=== PATIENT | male | born 1940 | race Caucasian/White ===

== ENCOUNTER → 2016-11-22 | Outpatient (CLI) | payer OTHER, MEDICARE | LOC: BMCIMAGING 14:13 | PROVIDERS: ATTEND Internal Medicine | DX: R06.02 Shortness of breath (principal); R06.2 Wheezing; E78.5 Hyperlipidemia, unspecified; I10 Essential (primary) hypertension; I25.10 Atherosclerotic heart disease of native coronary artery without angina pectoris; I48.91 Unspecified atrial fibrillation; J45.909 Unspecified asthma, uncomplicated ==

== ENCOUNTER 2016-12-05 08:53 | Emergency (ER) | payer OTHER, MEDICARE ==
[2016-12-05 09:01] VITALS: TEMP 97.5
--- NOTE | 2016-12-05 09:15 | CPEKG ---
Heart Rate: 75 RR Interval: 800 P-R Interval: 168 QRSD Interval: 142 QT Interval: 424 QTC Interval: 474 P [place]: 21 QRS [place]: -78 T Wave [place]: 8 EKG Severity - ABNORMAL ECG - EKG Impression: SINUS RHYTHM EKG Impression: ATRIAL PREMATURE COMPLEX EKG Impression: RBBB AND LAFB Electronically Signed By: Kiana Amezcua 05-Dec-2016 15:22:39
[2016-12-05] MEDS ORDERED: IPRATROPIUM/ALBUTEROL 3 ML DEYVIAL ONE (09:18)
[2016-12-05] MEDS ORDERED: methylPREDNISolone SOD SUCC 125 MG/2 ML VIAL ONE (09:18)
[2016-12-05] MEDS ORDERED: ASPIRIN 81 MG CHEWABLE TAB ONE (09:18)
[2016-12-05] MEDS ORDERED: methylPREDNISolone SOD SUCC 125 MG/2 ML VIAL IVP ONE (09:22)
[2016-12-05] MEDS ORDERED: IPRATROPIUM/ALBUTEROL 3 ML DEYVIAL IH ONE (09:22)
[2016-12-05] MEDS ORDERED: ASPIRIN 81 MG CHEWABLE TAB PO ONE (09:22)
--- NOTE | 2016-12-05 09:26 | EDPHY ---
H & P Time Seen by Provider: 12/05/16 09:03 HPI/ROS: CHIEF COMPLAINT: Shortness of breath HISTORY OF PRESENT ILLNESS: The patient is a 76-year-old male who presents to the emergency department with ongoing shortness of breath. The patient states he had asthma as a child but he grew out of it. His symptoms feel like he is having an asthma exacerbation. Patient states his symptoms started in July. He was diagnosed with bronchitis. He was treated with antibiotics and his symptoms improved. He again developed bronchitis 2 weeks ago. He was treated with antibiotics and he felt his symptoms were improving. His cough had decreased. However, he has remained short of breath. He feels as though his chest is tight. He denies fevers or chills. He has had no leg pain or swelling. No recent travel. No chest pain. He has no orthopnea or PND. He does state that he has more dyspnea on exertion. REVIEW OF SYSTEMS: My complete review of systems is negative except as mentioned in the HPI. Past Medical/Surgical History: Includes asthma, subarachnoid hemorrhage, hypertension, high cholesterol Past surgical history: Includes shunt placement, shoulder surgery x2, knee surgery, appendectomy Social history: The patient has a remote history of smoking. He is . Smoking Status: Former smoker Physical Exam: 36.4, 161/88, 81, 20, 91% on room air GENERAL: Well-appearing, in no acute distress, alert. HEENT: Eyes normal to inspection, normal pharynx, no signs of dehydration. NECK: No thyromegaly, no lymphadenopathy, supple. RESPIRATORY: Coarse breath sounds with scattered wheezing. No rales or rhonchi. No accessary muscle use. CVS: Regular rate and rhythm, no rubs, murmurs, or gallops. ABDOMEN: Soft, nontender, nondistended, no organomegaly. BACK: Normal to inspection, no CVA tenderness. SKIN: Normal color, no rash, warm, dry. No pallor. EXTREMITIES: No pedal edema, no calf tenderness, no Homans sign or cords, no joint swelling. NEURO/PSYCH: Alert and oriented x3, normal mood and affect, normal motor sensory exam. Constitutional: Initial Vital Signs Temperature (C) 36.4 C 12/05/16 08:58 Heart Rate 81 12/05/16 08:58 Respiratory Rate 20 12/05/16 08:58 Blood Pressure 161/88 H 05/14/17 08:58 O2 Sat (%) 91 L 12/05/16 08:58 O2 Delivery Mode Room Air Allergies/Adverse Reactions: HAYFEVER Allergy (Mild, Uncoded 12/05/16 08:56) NASAL CONGESTION Home Medications: Medication Instructions Recorded Cholecalciferol Vit D3 [Vitamin D3 1,000 units PO DAILY 10/26/12 1000 units (OTC)] Diltiazem HCl [Diltiazem 24Hr Cd] 240 mg PO DAILY 10/26/12 Docosahexanoic Acid/Vit C/Lut [Eye 1 each PO DAILY 10/26/12 Health Formula Softgel] Hydrochlorothiazide 25 mg PO DAILY 10/26/12 [Hydrochlorothiazide 25 MG (RX)] Irbesartan [Avapro 300 mg] 300 mg PO DAILY 10/26/12 Multivit with Calcium,Iron,Min 1 each PO DAILY 10/26/12 [Tab A Alban] [place]-3 Fatty Acids [Fish Oil 1000 2,000 mg PO DAILY 10/26/12 mg (OTC)] Simvastatin [Zocor 40 mg (RX)] 40 mg PO DAILY18 10/26/12 Ubidecarenone [Co Q-10 200 mg] 200 mg PO DAILY 10/26/12 Albuterol [Proventil Inhaler HFA 1 - 2 puffs IH Q4H #1 mdi 12/05/16 (*)] Aspirin 81mg (*) 12/05/16 predniSONE 20 mg PO DAILY 4 Days 12/05/16 Medical Decision Making - Diagnostics EKG Interpretation: Sinus rhythm at 75. Right bundle-branch block, left anterior fascicular block. No ST changes. Imaging Results: Imaging Impressions Chest X-Ray 12/05/16 09:23 Impression: Mild perihilar bronchitis, without a focal infiltrate. Findings were discussed with SULMA STORY MD at 10:13 am, on 12/05/2016. ED Course/Re-evaluation: In the emergency department I discussed possible etiologies with the patient. I answered all his questions. He consented to the plan. He will have laboratory studies, chest x-ray, EKG ordered. He was given aspirin 324 mg orally, DuoNeb, and Solu-Medrol 125 IV. After receiving the inhaler the patient states I feel much better. He has no difficulty breathing. He feels as though his asthma type symptoms have resolved. Patient's laboratory studies were unremarkable. His CBC, chemistry were normal. D-dimer, BNP and troponin were negative. Chest x-ray: Please refer the dictated report by Dr. Etienne Barillas. I personally reviewed the images with Dr. Barillas in person. He does not feel there is a focal infiltrate. 1010: I rechecked the patient. He was doing well. Patient's wheezing had improved. He has no rales or rhonchi. He does have continued coarse breath sounds.. No signs of accessary muscle use or respiratory distress. I discussed all results and answered the patient's questions. Patient will be given a course of steroid. He will also be discharged with inhaler. He will follow up with Dr. Weaver this week. Patient felt comfortable with this plan. He will return with worsening symptoms. Differential Diagnosis: My differential includes but is not limited to reactive airway disease, bronchitis, pneumonia, pulmonary embolus, CHF, ACS, acute MN - Data Points Laboratory Results: Laboratory Results 12/05/16 09:19 12/05/16 09:19 12/05/16 12/05/16 12/05/16 09:19 09:19 09:19 WBC 9.26 10^3/uL 10^3/uL (3.80-9.50) RBC 4.69 10^6/uL 10^6/uL (4.40-6.38) Hgb 15.9 g/dL g/dL (13.7-17.5) Hct 44.0 % % (40.0-51.0) MCV 93.8 fL fL (81.5-99.8) MCH 33.9 pg pg (27.9-34.1) MCHC 36.1 g/dL g/dL (32.4-36.7) RDW 12.6 % % (11.5-15.2) Plt Count 214 10^3/uL 10^3/uL (150-400) MPV 9.8 fL fL (8.7-11.7) Neut % (Auto) 45.7 % % (39.3-74.2) Lymph % (Auto) 30.9 % % (15.0-45.0) Edgar % (Auto) 7.6 % % (4.5-13.0) Eos % (Auto) 14.3 % H % (0.6-7.6) Baso % (Auto) 1.3 % % (0.3-1.7) Nucleat RBC Rel Count 0.0 % % (0.0-0.2) Absolute Neuts (auto) 4.24 10^3/uL 10^3/uL (1.70-6.50) Absolute Lymphs (auto) 2.86 10^3/uL 10^3/uL (1.00-3.00) Absolute Monos (auto) 0.70 10^3/uL 10^3/uL (0.30-0.80) Absolute Eos (auto) 1.32 10^3/uL H 10^3/uL (0.03-0.40) Absolute Basos (auto) 0.12 10^3/uL H 10^3/uL (0.02-0.10) Absolute Nucleated RBC 0.00 10^3/uL 10^3/uL (0-0.01) Immature Gran % 0.2 % % (0.0-1.1) Immature Gran # 0.02 10^3/uL 10^3/uL (0.00-0.10) D-Dimer < 0.27 ug/mLFEU ug/mLFEU (0.00-0.50) Sodium 141 mEq/L mEq/L (134-144) Potassium 4.0 mEq/L mEq/L (3.5-5.2) Chloride 102 mEq/L mEq/L (97-110) Carbon Dioxide 26 mEq/l mEq/l (22-31) Anion Gap 13 mEq/L mEq/L (8-16) BUN 23 mg/dL mg/dL (7-23) Creatinine 1.2 mg/dL mg/dL (0.7-1.3) Estimated GFR 59 Glucose 134 mg/dL H mg/dL (70-100) Calcium 9.7 mg/dL mg/dL (8.5-10.4) Troponin I < 0.012 ng/mL ng/mL (0-0.034) NT-Pro-B Natriuret Pep 50 pg/mL pg/mL (0-450) Medications Given: Discontinued Medications Albuterol/Ipratropium (Duoneb) 3 ml IH EDNOW ONE Stop: 12/05/16 09:23 Last Admin: 12/05/16 09:25 Dose: 3 ml Aspirin (Aspirin) 324 mg PO EDNOW ONE Stop: 12/05/16 09:23 Last Admin: 12/05/16 09:25 Dose: 324 mg Methylprednisolone Sodium Succinate (Solu-Medrol) 125 mg IVP EDNOW ONE Stop: 12/05/16 09:23 Last Admin: 12/05/16 09:26 Dose: 125 mg Departure - Departure Disposition: Home, Routine, Self-Care Clinical Impression: Shortness of breath Reactive airway disease Qualifiers: Asthma severity: unspecified severity Asthma complication type: with acute exacerbation Qualified Code(s): J45.901 - Unspecified asthma with (acute) exacerbation Condition: Good Instructions: Reactive Airways Disease (ED), Dyspnea (ED) Additional Instructions: Return with increasing shortness of breath, chest pain or any other concerns. Referrals: Rafael Weaver MD [Primary Care Provider] - 2-3 days, if not improved Prescriptions: Albuterol [Proventil Inhaler HFA (*)] 1 - 2 puffs IH Q4H #1 mdi predniSONE 20 mg PO DAILY 4 Days
[2016-12-05 09:32] LABS: % IMMATURE GRANULYOCYTES 0.2 % (0.0-1.1); ABSOLUTE IMMATURE GRANULOCYTES 0.02 10^3/uL (0.00-0.10); ADD DIFF? NO; ADD MORPH? NO; ADD SCAN? NO; ATYPICAL LYMPHOCYTE FLAG 0 (0-99); FRAGMENT RBC FLAG 0 (0-99); HEMOGLOBIN 15.9 g/dL (13.7-17.5); LEFT SHIFT FLG 0 (0-99); LIPEMIA HEMOLYSIS FLAG 90 (0-99); MEAN CELL HEMOGLOBIN 33.9 pg (27.9-34.1); MEAN CELL HEMOGLOBIN CONCENTR. 36.1 g/dL (32.4-36.7); MEAN CELL VOLUME 93.8 fL (81.5-99.8); MEAN PLATELET VOLUME 9.8 fL (8.7-11.7); PLATELET CLUMPS FLAG 10 (0-99); PLATELET COUNT 214 10^3/uL (150-400); RED BLOOD CELL COUNT 4.69 10^6/uL (4.40-6.38); RED CELL DISTRIBUTION WIDTH 12.6 % (11.5-15.2)
[2016-12-05 09:52] LABS: ANION GAP 13 mEq/L (8-16); CALCIUM 9.7 mg/dL (8.5-10.4); CARBON DIOXIDE 26 mEq/l (22-31); CHLORIDE 102 mEq/L (97-110); CREATININE 1.2 mg/dL (0.7-1.3); GLOMERULAR FILTRATION RATE 59; GLUCOSE 134 mg/dL (70-100); SODIUM 141 mEq/L (134-144)
[2016-12-05 10:04] LABS: TROPONIN I < 0.012 ng/mL (0-0.034)
[2016-12-05 10:15] VITALS: BP 142/89; PULSE 72; RESP 16; O2SAT 92
== END 2016-12-05 10:27 | disposition home or self-care (01) ==
DX: J45.901 Unspecified asthma with (acute) exacerbation (principal); I10 Essential (primary) hypertension; Z79.82 Long term (current) use of aspirin; Z87.891 Personal history of nicotine dependence
CPT/HCPCS: 96374

== ENCOUNTER 2017-08-28 07:53 | Emergency (ER) | payer OTHER, MEDICARE ==
--- NOTE | 2017-08-28 08:55 | EDPHY ---
H & P Stated Complaint: slipped on ice hit head/on xarelto/+ loc/hx subarachnoid/ with vp emerging media shunt - Personal History Current Tetanus/Diphtheria Vaccine: Yes - Medical/Surgical History Hx Asthma: Yes Hx Chronic Respiratory Disease: No Hx Diabetes: No Hx Cardiac Disease: Yes Hx Renal Disease: No Hx Cirrhosis: No Hx Alcoholism: No Hx HIV/AIDS: No Hx Splenectomy or Spleen Trauma: No Other PMH: pre afib? / subarachnoid hemorrhage/r knee surg/appy/l leg dvt - Social History Smoking Status: Former smoker Time Seen by Provider: 08/28/17 08:04 HPI/ROS: Chief complaint: Slip and fall with head injury History of present illness: This is a 76-year-old male, currently on Xarelto for a DVT, who presents to the emergency department for evaluation after sustaining a slip and fall, injuring his head. Just prior to arrival he slipped on ice outside, he fell backwards and struck the back of his head against the ground. There was a momentary loss of consciousness. Since then he has had mild discomfort in the back of his head. He denies other associated signs or symptoms including no global headache, no paresthesias, no weakness or paralysis, no bowel or bladder dysfunction. Further he denies trauma to or pain in his neck, back, chest, abdomen, pelvis or extremities. Review of systems: A 10 point review of systems was obtained and other than described above was negative (Rodger Blake) - Physical Exam Exam: General Appearance: Alert nontoxic Eyes: PERRLA ENT: No hemotympanum, no coker sign, no raccoon eyes Respiratory: Lungs clear to auscultation bilaterally Cardiac: Regular rate and rhythm. Gastrointestinal: Bowel sounds normal. Abdomen soft, nondistended, nontender. Neurological: Alert and oriented x4. Cranial nerves 2-12 grossly intact. Strength and sensation intact and symmetrical. Skin: No lesions consistent with acute trauma Musculoskeletal: The head is nontender, there is no crepitus or bony deformity. The spine is nontender to palpation along its entire length without crepitus, bony deformity or step-off. The chest wall is intact palpation. Patient is moving all extremities without difficulty. He is ambulating well. (Rodger Blake) Constitutional: Initial Vital Signs Temperature (C) 36.7 C 08/28/17 08:00 Heart Rate 80 08/28/17 08:00 Respiratory Rate 17 08/28/17 08:00 Blood Pressure 143/66 H 08/28/17 08:00 O2 Sat (%) 94 08/28/17 08:00 O2 Delivery Mode Room Air Allergies/Adverse Reactions: HAYFEVER Allergy (Mild, Uncoded 08/28/17 07:58) NASAL CONGESTION Home Medications: Medication Instructions Recorded Cholecalciferol Vit D3 [Vitamin D3 1,000 units PO DAILY 10/26/12 1000 units (OTC)] Diltiazem HCl [Diltiazem 24Hr Cd] 240 mg PO DAILY 10/26/12 Docosahexanoic Acid/Vit C/Lut [Eye 1 each PO DAILY 10/26/12 Health Formula Softgel] Hydrochlorothiazide 25 mg PO DAILY 10/26/12 [Hydrochlorothiazide 25 MG (RX)] Irbesartan [Avapro 300 mg] 300 mg PO DAILY 10/26/12 Multivit with Calcium,Iron,Min 1 each PO DAILY 10/26/12 [Tab A Alban] [place]-3 Fatty Acids [Fish Oil 1000 2,000 mg PO DAILY 10/26/12 mg (OTC)] Simvastatin [Zocor 40 mg (RX)] 40 mg PO DAILY18 10/26/12 Ubidecarenone [Co Q-10 200 mg] 200 mg PO DAILY 10/26/12 Albuterol [Proventil Inhaler HFA 1 - 2 puffs IH Q4H #1 mdi 12/05/16 (*)] Xarelto 08/28/17 Medical Decision Making - Diagnostics Imaging: Discussed imaging studies w/ yard caller Radiologist ED Course/Re-evaluation: Patient is seen in conjunction with my secondary supervising physician Dr. Chanelle Almazan. Patient presents to the emergency department for evaluation of head injury. He is on Xarelto. On presentation he is nontoxic. Vital signs are stable. Physical exam is benign without evidence of obvious trauma. Given head injury and Xarelto use a CT scan of the head is pursued and negative. Patient remains well appearing in the emergency room. I have had a lengthy discussion with the patient that at this time his CT scan is negative. However he is at increased risk for complications from a head injury given his Xarelto use. Patient is with his . I have had a lengthy discussion with them on head injury precautions at home. They are comfortable maintaining head injury precautions at home. They understand that if he has any worsening of his symptoms or any new symptoms develop he needs to return immediately to the emergency room. He is asked to follow up with his primary care doctor tomorrow for recheck without fail. (Rodger Blake) I have evaluated and participated in the management of this patient. My co- signature indicates that I have reviewed this chart and that I agree with the findings and the plan of care as documented. My personal history and physical findings include: 76-year-old male on Xarelto for DVT who slipped on the ice and fell, striking the back of his head. There was a brief loss of consciousness. He now has some occipital pain at the site of impact. He denies neck pain. He denies change in vision, confusion, difficulty with speaking, numbness, or weakness. He has remote history of what sounds like subarachnoid hemorrhage and has a ventriculoperitoneal shunt. On exam he is normocephalic. Neck is nontender to palpation over the cervical spine. Lungs are clear. Heart is regular rate and rhythm. Cranial nerves are grossly normal. He is moving all 4 extremities easily and equally. Sensation is intact to light touch. CT scan is negative for acute hemorrhage. I reviewed the images and the radiology report. Danger signs that should prompt immediate re-evaluation were reviewed. (Chanelle Almazan) Differential Diagnosis: Included but not limited to soft tissue injury, bony fracture, concussion, intracranial bleed (Rodger Blake) Departure - Departure Disposition: Home, Routine, Self-Care Clinical Impression: Head injury Condition: Good Instructions: Head Injury (ED) Additional Instructions: Please follow-up with your primary care doctor tomorrow for recheck without fail If symptoms worsen or new symptoms develop including increasing pain in the head , nausea and vomiting, tingling in the body, trouble moving parts of the body, increased tiredness or acting inappropriately or other signs or symptoms develop return to the emergency room for recheck Referrals: Rafael Weaver MD [Primary Care Provider] - As per Instructions
[2017-08-28 09:19] VITALS: BP 142/90; PULSE 64; RESP 16; TEMP 98.4; O2SAT 95
== END 2017-08-28 09:19 | disposition home or self-care (01) ==
DX: S09.90XA Unspecified injury of head, initial encounter (principal); J45.909 Unspecified asthma, uncomplicated; Z87.891 Personal history of nicotine dependence; W00.0XXA Fall on same level due to ice and snow, initial encounter; Y92.89 Other specified places as the place of occurrence of the external cause; Y93.89 Activity, other specified

== ENCOUNTER 2017-09-27 08:54 | Day surgery (SDC) | payer OTHER, MEDICARE ==
[2017-09-27] MEDS ORDERED: ATROPINE SULFATE 1 MG/10 ML SYR IVP ONE (08:55)
[2017-09-27] MEDS ORDERED: NS 500 ML IV ONE (08:57)
[2017-09-27] MEDS ORDERED: BENZOCAINE UNIT DOSE SPRAY HURRICAINE MM ONE (08:57)
--- NOTE | 2017-09-27 09:16 | CPEKG ---
Heart Rate: 84 RR Interval: 714 P-R Interval: 156 QRSD Interval: 138 QT Interval: 420 QTC Interval: 497 P [place]: -2 QRS [place]: -71 T Wave [place]: -2 EKG Severity - ABNORMAL ECG - EKG Impression: SINUS ARRHYTHMIA, RATE 65-101 EKG Impression: RBBB AND LAFB Electronically Signed By: Carrington Solis 27-Sep-2017 11:10:15
[2017-09-27 09:47] LABS: INR 1.79 (0.83-1.16); PROTIME(PATIENT) 20.9 SEC (12.0-15.0)
--- NOTE | 2017-09-27 10:04 | PDHPUP ---
History & Physical Update H&P update statement: This history and physical update is based on an assessment of the patient which was completed after admission or registration (within 24 hours), but prior to the surgery/procedure. H&P update: H&P reviewed & patient examined, no change in patient's condition since H&P completed, changes noted
[2017-09-27] MEDS ORDERED: PROPOFOL 200 MG/20 ML VIAL ONE (10:08)
--- NOTE | 2017-09-27 10:12 | PDANEPAE ---
ANE History of Present Illness here for KYLE /CV ANE Past Medical History - Cardiovascular History Hx Hypertension: Yes Hx Arrhythmias: Yes Hx Chest Pain: No Hx Coronary Artery / Peripheral Vascular Disease: No Hx CHF / Valvular Disease: No Hx Palpitations: No - Pulmonary History Hx COPD: No Hx Asthma/Reactive Airway Disease: Yes Hx Recent Upper Respiratory Infection: No Hx Oxygen in Use at Home: No Hx Sleep Apnea: No - Endocrine History Hx Diabetes: No Hypothyroid: No Hyperthyroid: No Obesity: mild - Liver History Hx Hepatic Disorders: No - Neurological & Psychiatric Hx Hx Neurological and Psychiatric Disorders: No ANE Review of Systems Review of systems is: negative Review of Systems: - Exercise capacity Exercise capacity: >=4 METS ANE Patient History - Allergies Allergies/Adverse Reactions: HAYFEVER Allergy (Mild, Uncoded 08/28/17 07:58) NASAL CONGESTION - Home Medications Home medications: home medication list seen and reviewed Home Medications: Cholecalciferol Vit D3 [Vitamin D3 1000 units (OTC)] 1,000 units PO DAILY [Last Taken Unknown] Diltiazem HCl [Diltiazem 24Hr Cd] 240 mg PO DAILY 10/26/12 [Last Taken Unknown] Docosahexanoic Acid/Vit C/Lut [Eye Health Formula Softgel] 1 each PO DAILY 10/26 [Last Taken Unknown] Hydrochlorothiazide [Hydrochlorothiazide 25 MG (RX)] 25 mg PO DAILY 10/26/12 [ Last Taken Unknown] Irbesartan [Avapro 300 mg] 300 mg PO DAILY 10/26/12 [Last Taken Unknown] Multivit with Calcium,Iron,Min [Tab A Alban] 1 each PO DAILY 10/26/12 [Last Taken Unknown] [place]-3 Fatty Acids [Fish Oil 1000 mg (OTC)] 2,000 mg PO DAILY 10/26/12 [Last Taken Unknown] Simvastatin [Zocor 40 mg (RX)] 40 mg PO DAILY18 10/26/12 [Last Taken Unknown] Ubidecarenone [Co Q-10 200 mg] 200 mg PO DAILY 10/26/12 [Last Taken Unknown] Xarelto 08/28/17 [Last Taken Unknown] - NPO status NPO Status: no food or drink >8 hours - Smoking Hx Smoking Status: Former smoker ANE Labs/Vital Signs - Labs Result Diagrams: 09/27/17 09:25 - Vital Signs Vital Signs: reviewed preoperatively; see RN documention for details Height: 178 cm Weight: 83.915 kg ANE Physical Exam - Airway Neck exam: FROM Mallampati Score: Class 1 - Pulmonary Pulmonary: no respiratory distress - Cardiovascular Cardiovascular: irregularly irregular - ASA Status ASA Status: III ANE Anesthesia Plan Anesthesia Plan: GA with mask
--- NOTE | 2017-09-27 10:34 | PDCARTEE ---
CAR KYLE CAR KYLE: PROCEDURE: (1) Anesthesia guided sedation (2) KYLE (3) Possible cardioversion INDICATION: (1) Atrial fibrillation PROCEDURE DETAILS: After consents were obtained for sedation, KYLE, and possible cardioversion, the patient was placed in the left lateral position to facilitate KYLE probe placement. Sedation was induced, and the KYLE probe was placed without difficulty. Standard views were obtained. Prelim report: Normal LVEF was noted. Mild dilation of the LA. Grossly normal mitral valve with mild regurgitation noted. Trileaflet aortic valve without sclerosis or stenosis noted. No appreciable insufficiency was noted. Grossly normal tricuspid valve without regurgitation. Grossly normal pulmonic valve with mild insufficiency. 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 No smoke was noted to the atria. Bubble contrast injection without right to left passage noted. 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 There was also coronary artery calcification to the LM and LAD. Cardioversion was not performed given the thombus that was noted to the apex of the left atrial appendage. Would continue anticoagulation for another 2-4 weeks, and repeat KYLE at that time.
--- NOTE | 2017-09-27 10:51 | POSTANESTH ---
Post Anesthetic Evaluation Cardiovascular Status: Normal, Stable Respiratory Status: Normal, Stable Level of Consciousness/Mental Status: Can Participate in Eval Pain Control: Adequate, Prn Tx Ordered Nausea/Vomiting Control: Adequate, Prn Tx Ordered Complications Possibly Related to Anesthesia: None Noted
--- NOTE | 2017-09-27 16:14 | ECHO ---
[email or web address] [address] [address] Main: [phone] Fax: Transesophageal Echocardiography Name: ESTHER RIOS MR#: [id number] Study Date: 09/27/2017 Study Time: 10:05 AM Date of : 1940 Age: 76 year(s) Height: ( ) Weight: ( ) BSA: Gender: Male Examination: KYLE Indication: Pre Cardioversion Image Quality: Contrast: Requested by: Carrington Allison Heart Rate: Rhythm: BP: / Procedure Staff Claim Auditor: Pierre Lakhani RDCS Reading Physician: Carrington Solis MD Requesting Provider: KYLE Exam Details Conclusions: Normal global systolic LV function. No regional wall motion abnormality. Normal size right ventricle. An agitated saline study was performed and was negative for intracardiac shunting. Probable thrombus in left appendage. The right atrium is normal in size. Mild mitral valve regurgitation is present. Aortic Valve: The aortic valve is tri-leaflet and functions normally. The tricuspid valve is normal in appearance and function. The pulmonic valve is normal in appearance and function. The aorta is normal. No pericardial effusion. Measurements: Chambers Valvular Assessment AV/MV Valvular Assessment TV/PV Normal Normal Normal Name Value Range Name Value Range Name Value Range Additional Measurements: Findings: Left Ventricle: Patient: ESTHER RIOS Study Date: 09/27/2017 Page 1 of 2 10:05 AM Normal global systolic LV function. No regional wall motion abnormality. Right Ventricle: Normal size right ventricle. Left Atrium: An agitated saline study was performed and was negative for intracardiac shunting. Left Atrial Appendage: Probable thrombus in left appendage. Right Atrium: The right atrium is normal in size. Mitral Valve: The mitral valve is normal in appearance and function. Mild mitral valve regurgitation is present. Aortic Valve: The aortic valve is tri-leaflet and functions normally. There is no aortic valve regurgitation. Tricuspid Valve: The tricuspid valve is normal in appearance and function. Pulmonic Valve: The pulmonic valve is normal in appearance and function. Aorta: The aorta is normal. Pericardium: No pericardial effusion. Exam Comments: Cardioversion was paused at this time due to JEVON probable thrombus.. l1n (No Signature Object) Patient: ESTHER RIOS Study Date: 09/27/2017 Page 2 of 2 10:05 AM [id number]
== END 2017-09-27 12:28 | disposition home or self-care (01) ==
LOC: FCATH 08:54
PROVIDERS: ATTEND Anesthesiology Pain Medicine
DX: I23.6 Thrombosis of atrium, auricular appendage, and ventricle as current complications following acute myocardial infarction (principal); I48.91 Unspecified atrial fibrillation; I11.9 Hypertensive heart disease without heart failure; I43 Cardiomyopathy in diseases classified elsewhere; Z79.01 Long term (current) use of anticoagulants
CPT/HCPCS: J0461; J2704

== ENCOUNTER 2017-10-24 07:54 | Day surgery (SDC) | payer OTHER, MEDICARE ==
[2017-10-24] MEDS ORDERED: MIDAZOLAM 2 MG/2 ML VIAL IVP ONE (08:00)
[2017-10-24] MEDS ORDERED: NS 500 ML IV ONE (08:00)
[2017-10-24] MEDS ORDERED: ATROPINE SULFATE 1 MG/10 ML SYR IVP ONE (08:00)
[2017-10-24] MEDS ORDERED: fentaNYL 100 MCG/2 ML INJ IVP ONE (08:00)
[2017-10-24] MEDS ORDERED: BENZOCAINE UNIT DOSE SPRAY HURRICAINE MM ONE (08:00)
--- NOTE | 2017-10-24 08:16 | CPEKG ---
Heart Rate: 86 RR Interval: 698 P-R Interval: 160 QRSD Interval: 138 QT Interval: 408 QTC Interval: 488 P [place]: 8 QRS [place]: -66 T Wave [place]: 12 EKG Severity - ABNORMAL ECG - EKG Impression: SINUS ARRHYTHMIA, RATE 68-104 ,CONSIDER PAC's EKG Impression: RBBB AND LAFB Electronically Signed By: Michel rFiedman 24-Oct-2017 09:36:13
--- NOTE | 2017-10-24 12:43 | ECHO ---
[email or web address] [address] [address] Main: [phone] Fax: Transthoracic Echocardiogram Name: ESTHER RIOS MR#: [id number] Study Date: 10/24/2017 Study Time: 09:04 AM Date of : 1940 Age: 76 year(s) Height: 177.8 cm (70 in.) Weight: 85.28 kg (188 lb.) BSA: 2.03 m2 Gender: Male Examination: Limited Echo Indication: limited echo for LVFX and MR Image Quality: Adequate Contrast: Requested by: Carrington Solis BP: / Heart Rate: Rhythm: Normal sinus rhythm Indication: limited echo for LVFX and MR Procedure Staff Sonar Technician: Anna Blum [facility] Reading Physician: Eliel Werner MD Requesting Provider: Conclusions: Normal size left ventricle. Mild concentric LV hypertrophy. Normal global systolic LV function. EF is 55 %. Upper normal size right ventricle. Normal RV function. The left atrium is normal in size. The right atrium is normal in size. The mitral valve is normal in appearance and function. There is mild thickening of the mitral valve leaflets. Mild mitral valve regurgitation is present. No mitral stenosis is present. The IVC is normal sized. Measurements: Chambers Valvular Assessment AV/MV Valvular Assessment TV/PV Normal Normal Normal Name Value Range Name Value Range Name Value Range Ao Luz Marina (MM): 2.9 cm (2.2 cm-3.7 TR Vmax: 2.47 mm/s ( - ) cm) TR PGmax: 24 mmHg ( - ) IVSd (2D): 0.9 cm (0.6 cm-1.1 syst. PAP: 29 mmHg ( - ) cm) LVDd (2D): 4.8 cm (4.2 cm-5.9 cm) LVDs (2D): 3.2 cm (2.1 cm-4 cm) LVPWd (2D): 1.2 cm (0.6 cm-1 cm) LVEF (BP): 55 % (>=55 %) Patient: ESTHER RIOS Study Date: 10/24/2017 Page 1 of 2 09:04 AM RVDd(2D): 3.9 cm (1.9 cm-3.8 cmmm) Continued Measurements: Chambers Valvular Assessment TV/PV Name Value Name Value LADs: 3.9 cm CVP (est.): 5 mmHg LADs Lon.7 cm LA Area: 20.8 cm2 LA Volume: 65 ml LA Volume Index: 32.0 ml/m2 RA Area: 17.9 cm2 Additional Vessels Name Value Ao Ascendin.3 cm Inferior Vena Cava: 1.9 cm Findings: Left Ventricle: Normal size left ventricle. Mild concentric LV hypertrophy. Normal global systolic LV function. EF is 55 %. No regional wall motion abnormality. Right Ventricle: Upper normal size right ventricle. Normal RV function. Left Atrium: The left atrium is normal in size. Right Atrium: The right atrium is normal in size. Mitral Valve: The mitral valve is normal in appearance and function. There is mild thickening of the mitral valve leaflets. Mild mitral valve regurgitation is present. No mitral stenosis is present. Aortic Valve: Trivial aortic valve regurgitation. Tricuspid Valve: The tricuspid valve is normal in appearance and function. Mild tricuspid regurgitation is present. Right ventricular systolic pressure measures 29mmHg. The pulmonary artery pressure is normal. IVC: The IVC is normal sized. Pericardium: No pericardial effusion. (No Signature Object) Patient: ESTHER RIOS Study Date: 10/24/2017 Page 2 of 2 09:04 AM [id number]
== END 2017-10-24 09:45 | disposition home or self-care (01) ==
LOC: FCATH 07:54
PROVIDERS: ATTEND Internal Medicine Cardiovascular Disease
DX: I48.91 Unspecified atrial fibrillation (principal); I34.0 Nonrheumatic mitral (valve) insufficiency

== ENCOUNTER → 2017-11-11 | Outpatient (CLI) | payer OTHER, MEDICARE | LOC: BMCIMAGING 13:28 | PROVIDERS: ATTEND Internal Medicine | DX: I82.512 Chronic embolism and thrombosis of left femoral vein (principal) ==

== ENCOUNTER → 2017-12-12 | Outpatient (CLI) | payer OTHER, MEDICARE | LOC: BHFA 15:15 | PROVIDERS: ATTEND Internal Medicine Cardiovascular Disease | DX: I48.91 Unspecified atrial fibrillation (principal); I11.9 Hypertensive heart disease without heart failure; I43 Cardiomyopathy in diseases classified elsewhere ==

== ENCOUNTER → 2017-12-22 | Outpatient (CLI) | payer OTHER, MEDICARE | LOC: BHFA 09:30 | PROVIDERS: ATTEND Internal Medicine Cardiovascular Disease | DX: I48.91 Unspecified atrial fibrillation (principal) ==

== ENCOUNTER → 2018-01-17 | Outpatient (CLI) | payer OTHER, MEDICARE | LOC: FCPNEURO 10:25 | PROVIDERS: ATTEND Student in an Organized Health Care Education/Training Program | DX: G47.33 Obstructive sleep apnea (adult) (pediatric) (principal) ==

== ENCOUNTER → 2018-01-19 | Outpatient (CLI) | payer OTHER, MEDICARE | DX: I48.91 Unspecified atrial fibrillation (principal) ==

== ENCOUNTER → 2018-06-20 | Outpatient (CLI) | payer OTHER, MEDICARE ==
[~2018-06-20] MED LIST: IOPAMIDOL (ISOVUE 370) 100 ML BTL IV ONE
== END ==
LOC: FIMAGING 10:42
PROVIDERS: ATTEND Internal Medicine Cardiovascular Disease
DX: I48.91 Unspecified atrial fibrillation (principal); I25.10 Atherosclerotic heart disease of native coronary artery without angina pectoris; K22.9 Disease of esophagus, unspecified
CPT/HCPCS: 75572; Q9967

== ENCOUNTER 2018-06-27 11:05 | Observation (INO) | payer OTHER, MEDICARE ==
[2018-06-27] MEDS ORDERED: NS 1,000 ML IV ONE (11:08)
[2018-06-27 11:52] LABS: PLATELET COUNT 221 10^3/uL (150-400)
[2018-06-27 12:01] LABS: INR 1.15 (0.83-1.16); PROTIME(PATIENT) 14.9 SEC (12.0-15.0)
--- NOTE | 2018-06-27 12:30 | CPEKG ---
Test Reason : OPEN Blood Pressure : / mmHG Vent. Rate : 089 BPM Atrial Rate : 087 BPM P-R Int : 204 ms QRS Dur : 151 ms QT Int : 445 ms P-R-T Axes : 065 -66 004 degrees QTc Int : 542 ms Sinus arrhythmia RBBB and LAFB Confirmed by Anibal Bear ([id number]) on 06/27/2018 12:29:48 PM Referred By: Confirmed By:Anibal Bear
--- NOTE | 2018-06-27 12:56 | PDGENHP ---
History & Physical Chief Complaint: AF, AFl History of Present Illness: Increasing frequency of symptomatic episodes of a- fib/atrial flutter. Relevant Physical Exam: General: A&Ox4, no apparent distress. Respiratory: CTA. Cardiac: Irregularly irregular. Extremities: Normal exam, pulses 2+ bilaterally, no edema Cardiorespiratory Assessment: Proceed with KYLE + atrial flutter ablation + CB PVI. Post-procedure instructions reviewed in detail with patient
--- NOTE | 2018-06-27 14:40 | PDANEPAE ---
ANE History of Present Illness here for AF ablation ANE Past Medical History - Cardiovascular History Hx Hypertension: Yes Hx Arrhythmias: Yes Hx Chest Pain: No Hx Coronary Artery / Peripheral Vascular Disease: No Hx CHF / Valvular Disease: No Hx Palpitations: No - Pulmonary History Hx COPD: No Hx Asthma/Reactive Airway Disease: Yes Hx Recent Upper Respiratory Infection: No Hx Oxygen in Use at Home: Yes Hx Sleep Apnea: Yes - Endocrine History Hx Diabetes: No - Liver History Hx Hepatic Disorders: No - Neurological & Psychiatric Hx Hx Neurological and Psychiatric Disorders: No - Chronic Pain History Chronic Pain: No ANE Review of Systems Review of systems is: negative Review of Systems: - Exercise capacity Exercise capacity: >=4 METS ANE Patient History - Allergies Allergies/Adverse Reactions: HAYFEVER Allergy (Mild, Uncoded 02/25/18 05:27) NASAL CONGESTION - Home Medications Home medications: home medication list seen and reviewed Home Medications: Cholecalciferol Vit D3 [Vitamin D3 (*)] 1,000 units PO DAILY 10/26/12 [Last Taken 02/28/18] Diltiazem HCl [Diltiazem 24Hr Cd] 240 mg PO DAILY 10/26/12 [Last Taken 02/28/18] Apixaban [Eliquis] 5 mg PO BID 08/28/17 [Last Taken 02/28/18] Atorvastatin Calcium 20 mg PO DAILY 10/24/17 [Last Taken 02/28/18] C/E/Zn/Cu/OM3/DHA/EPA/LUT/ZEAX [Preservision Areds 2 Softgel] 1 each PO BID 09/11 [Last Taken 02/28/18] FLUoxetine [Prozac 10 MG (*)] 10 mg PO DAILY 10/24/17 [Last Taken 02/28/18] Vitamin B Complex [Vitamin B Complex (OTC)] 1 each PO DAILY 10/24/17 [Last Taken 02/28/18] Herbals/Supplements -Info Only 1 ea PO DAILY 02/28/18 [Last Taken Unknown] Hydrochlorothiazide [HCTZ (*)] 12.5 mg PO DAILY 02/28/18 [Last Taken 02/28/18] Latanoprost 0.005% [Xalatan 0.005% (*)] 1 drops EACHEYE HS 02/28/18 [Last Taken 02/27/18] Multivitamins [Multivitamin (*)] 1 each PO DAILY 02/28/18 [Last Taken 02/28/18] Omeprazole 20 mg PO DAILY 06/20/18 [Last Taken Unknown] - NPO status NPO Status: no food or drink >8 hours - Smoking Hx Smoking Status: Never smoked ANE Labs/Vital Signs - Labs Result Diagrams: 06/27/18 11:40 06/27/18 11:40 - Vital Signs Vital Signs: reviewed preoperatively; see RN documention for details ANE Physical Exam - Airway Neck exam: FROM Mallampati Score: Class 1 - Pulmonary Pulmonary: no respiratory distress - Cardiovascular Cardiovascular: regular rate and rhythym - ASA Status ASA Status: III ANE Anesthesia Plan Anesthesia Plan: general endotracheal anesthesia
[2018-06-27] MEDS ORDERED: MIDAZOLAM 2 MG/2 ML VIAL IVP ONE (14:46)
[2018-06-27] MEDS ORDERED: PROPOFOL/EMULSION 500 MG/50 ML BOTTLE IV ONE ×2 (15:01→16:43)
[2018-06-27] MEDS ORDERED: ONDANSETRON 4 MG/2 ML VIAL IVP PRN (15:10)
[2018-06-27] MEDS ORDERED: fentaNYL 100 MCG/2 ML INJ IVP PRN (15:10)
[2018-06-27] MEDS ORDERED: ALBUTEROL 3 ML DEYVIAL IH PRN (15:10)
[2018-06-27] MEDS ORDERED: HYDROmorphONE/DILAUDID 2 MG/ML INJ IVP PRN (15:10)
[2018-06-27] MEDS ORDERED: NALOXONE HCL 0.4 MG/ML INJ IVP PRN (15:10)
[2018-06-27] MEDS ORDERED: HEPARIN 10,000 UNIT/10 ML MDV (1,000 UNIT/ML) ONE (15:15)
[2018-06-27] MEDS ORDERED: LIDOCAINE 1% 300 MG/30 ML SDV ONE (15:15)
[2018-06-27] MEDS ORDERED: HEPARIN/DEXTROSE 25,000 UNIT/500 ML BAG ONE (15:15)
[2018-06-27] MEDS ORDERED: BUPIVACAINE 0.75% 10 ML SDV ONE (15:16)
[2018-06-27] MEDS ORDERED: IOPAMIDOL (ISOVUE-300) 100 ML BTL ONE (15:16)
[2018-06-27] MEDS ORDERED: fentaNYL 100 MCG/2 ML INJ ONE ×2 (15:19→16:20)
[2018-06-27] MEDS ORDERED: PHENYLEPHRINE HCL 100 MCG/ML SYR ONE (15:26)
[2018-06-27] MEDS ORDERED: ePHEDrine SULFATE 25 MG/5 ML SYR ONE (15:26)
[2018-06-27] MEDS ORDERED: PROTAMINE SULFATE 50 MG/5 ML VIAL IVP ONE (17:15)
--- NOTE | 2018-06-27 18:18 | EPPROC ---
Electrophysiology Procedure Note: ELECTROPHYSIOLOGIC STUDY AND BALLOON-CATHETER MEDIATED CRYOABLATION FOR PAROXYSMAL ATRIAL FIBRILLATION AND ATRIAL FLUTTER Procedures performed: 41356-15 EP evaluation with RA/RV/LA pace/record, with arrhythmia induction 05745-84 EP evaluation with RA/RV pace record, insert/reposition catheter, with arrhythmia induction 07165 Atrial fibrillation ablation Second arrhythmia Intracardiac echocardiogram Transseptal puncture Fluoroscopy INDICATION: Paroxysmal atrial fibrillation PROCEDURE: The patient arrived in the Electrophysiology Laboratory in the fasting state. The right groin, left groin and right infraclavicular area were prepped and draped in the usual sterile fashion. Anesthesiologist administered general anesthesia . All catheters were placed percutaneously using the Seldinger technique and advanced into position under fluoroscopic guidance. One #7 Mosotho deflectable octapolar electrode catheter was placed in the His-bundle position via the left femoral vein (2mm spacing, IVC electrode for unipolar recordings). This catheter was placed in the coronary sinus after transseptal puncture and later placed in the SVC-R subclavian vein junction to pace the right phrenic nerve during right pulmonary vein ablation. One #8 Mosotho AcuNaV ultrasound catheter was placed in the left femoral vein and advanced into the right atrium. One #4 Mosotho sheath was inserted into the left femoral artery via percutaneous technique and used for continuous arterial blood pressure monitoring and intermittent ACT determination. Programmed stimulation was performed from the right atrium, left atrium (CS) and right ventricle. Intracardiac echo evaluation of the left atrium and pulmonary veins was performed. Baseline ACT was drawn and heparin bolus was administered and heparin drip was started prior to transseptal puncture. ACT was checked every 15 minutes and maintained in the range of 350-400 seconds. One 14Fr short sheath was placed in the right femoral vein. One 8Fr SL1 sheath was advanced into the right atrium via the 14Fr short sheath. Transseptal puncture was performed under intracardiac ultrasound, fluoroscopic and hemodynamic guidance placing the sheath into the left atrium. [place] RF needle ( C0 curve) was used. The mean left atrial pressure was 10 mmHg. 3D map of left atrial and pulmonary veins was performed using PentaRay catheter. The SL1 sheath was exchanged for a City Chattrtronic Flexcath sheath using an Amplatz stiff guide wire. A 28 mm Cryoballoon catheter with a 20 mm Achieve catheter was placed via the sheath into the left atrium. Intracardiac ultrasound and PV angiograms were used to assist in placing the mapping catheter at the antrum of the pulmonary veins. All pulmonary veins were isolated successfully using cryoballoon ablation using freeze/thaw/freeze cycles at 2-3-minute intervals, with good [id number] of isolation. Coumadin ridge/Ligament of Richard region was ablated. Pre and post pulmonary vein recordings were measured on the spiral Achieve catheter to ensure complete pulmonary vein isolation. During the right-sided ablation, phrenic nerve pacing was performed to assess the phrenic nerve strength ( manually and with ICE visualization of liver movement during phrenic capture) and the phrenic nerve was intact throughout the right-sided ablation and at the end of the procedure. An esophageal temperature probe (12 electrode, Circa) was placed by the anesthesiologist at the beginning of the procedure. Esophageal temperature was monitored continuously and cryoablation was interrupted if esophageal temperature was <15 C. Catheters were withdrawn into the right atrium. Halo catheter was placed along the TA. Ablation was performed along the CT isthmus using Mobi sheath and 3.5 mm irrigated STSF catheter. Bidirectional conduction block was achieved. Septal to lateral conduction time 185 ms. ICE imaging post ablation was consistent with pre ablation imaging with no changes noted, moreover there was no left atrial/left ventricular thrombus and no pericardial effusion. The catheters were withdrawn. Protamine was given. The sheaths were removed and subcutaneous pursestring suture and manual pressure was used for hemostasis. The patient was recovered from anesthesia. There were no complications. The patient was arousable and moving all four extremities at the end of the procedure. CONCLUSIONS: 1. Paroxysmal atrial fibrillation. 2. Successful pulmonary vein isolation procedure (left and right pulmonary vein antrum) using cryoballoon ablation. 3. Ablation of the cavotricuspid isthmus achieving bidirectional conduction block for atrial flutter. 4. Underlying RBBB. 5. No apparent complications. Patient Problems: Problems Problem Status Onset Near syncope Acute Exertional dyspnea Acute
[2018-06-27] MEDS ORDERED: LATANOPROST 0.005% 2.5 ML OPHT DROPS EACHEYE SCH (21:00)
[2018-06-27] MEDS: PRESERVISION AREDS2 FORMULA EYE VIT 1 EACH PO SCH (21:17)
[2018-06-27] MEDS: APIXABAN 5 MG TAB PO SCH (22:59)
[2018-06-28 06:13] LABS: PLATELET COUNT 179 10^3/uL (150-400)
[2018-06-28] MEDS: PRESERVISION AREDS2 FORMULA EYE VIT 1 EACH PO SCH (08:21)
[2018-06-28] MEDS: APIXABAN 5 MG TAB PO SCH (08:22)
[2018-06-28] MEDS ORDERED: FLUoxetine 10 MG CAP PO SCH (09:00)
[2018-06-28] MEDS ORDERED: PANTOPRAZOLE SODIUM 40 MG TAB PO SCH (09:00)
[2018-06-28] MEDS ORDERED: CHOLECALCIFEROL VIT D3 1,000 UNITS TAB PO SCH (09:00)
[2018-06-28] MEDS ORDERED: VITAMIN B COMPLEX 1 EA CAP/TAB PO SCH (09:00)
[2018-06-28] MEDS ORDERED: ATORVASTATIN CALCIUM 20 MG TAB PO SCH (09:00)
[2018-06-28] MEDS ORDERED: HYDROCHLOROTHIAZIDE 12.5 MG CAP PO SCH (09:00)
[2018-06-28] MEDS ORDERED: DILTIAZEM CD 120 MG CAP PO SCH (09:00)
--- NOTE | 2018-06-28 09:13 | ECHO ---
[email or web address] [address] [address] Main: [phone] Fax: Transthoracic Echocardiogram Name: ESTHER RIOS MR#: [id number] Study Date: 06/28/2018 Study Time: 08:32 AM Date of : 1940 Age: 77 year(s) Height: 177.8 cm (70 in.) Weight: 83.46 kg (184 lb.) BSA: 2.01 m2 Gender: Male Examination: Echo Indication: Post Ablation Image Quality: Contrast: Requested by: Elijah Coronel BP: 133 mmHg/71 mmHg Heart Rate: Rhythm: Indication: Post Ablation Procedure Staff Conveyor Loader: Annabel Bueno RDCS Reading Physician: Alli Nolan MD Requesting Provider: Conclusions: The ejection fraction is estimated to be 60-65 %. Transseptal puncture visualized.. Mild mitral valve regurgitation is present. Mild tricuspid regurgitation is present. No pericardial effusion. Measurements: Chambers Valvular Assessment AV/MV Valvular Assessment TV/PV Normal Normal Normal Name Value Range Name Value Range Name Value Range Ao Luz Marina (MM): 3.5 cm (2.2 cm-3.7 AV Vmax: 1.49 m/s (1 m/s-1.7 TR Vmax: 2.38 mm/s ( - ) cm) m/s) TR PGmax: 23 mmHg ( - ) IVSd (2D): 0.8 cm (0.6 cm-1.1 AV meanP mmHg ( - ) syst. PAP: 28 mmHg ( - ) cm) MV E Vmax: 0.89 m/s ( - ) LVDd (2D): 4.7 cm (4.2 cm-5.9 MV A Vmax: 0.72 m/s ( - ) cm) MV E/A: 1.24 ( - ) LVDs (2D): 3.4 cm (2.1 cm-4 cm) LVPWd (2D): 0.9 cm (0.6 cm-1 cm) LVEF (MOD4): 67 % (>=55 %) EF Range: 60-65 % Continued Measurements: Chambers Valvular Assessment AV/MV Valvular Assessment TV/PV Name Value Name Value Name Value LADs: 3.6 cm MV E' Septal: 0.06 m/s CVP (est.): 5 mmHg LADs Lon.6 cm MV E/E' Septal: 14.00 LA Area: 19.6 cm2 MV E/E' Lateral: 15.40 Patient: ESTHER RIOS Study Date: 06/28/2018 Page 1 of 2 08:32 AM LA Volume: 55 ml LA Volume Index: 27.4 ml/m2 Findings: Left Ventricle: Normal size left ventricle. No LV hypertrophy. Normal global systolic LV function. The ejection fraction is estimated to be 60-65 %. No regional wall motion abnormality. Normal diastolic LV function. Right Ventricle: Normal size right ventricle. Left Atrium: The left atrium is normal in size. Transseptal puncture visualized.. Right Atrium: The right atrium is normal in size. Mitral Valve: The mitral valve is normal in appearance and function. Mild mitral valve regurgitation is present. Aortic Valve: The aortic valve is normal in appearance and function. Trivial aortic valve regurgitation. Tricuspid Valve: The tricuspid valve is normal in appearance and function. Mild tricuspid regurgitation is present. The pulmonary artery pressure is normal. Pulmonic Valve: The pulmonic valve is normal in appearance and function. Trivial pulmonic valve regurgitation. Aorta: The aorta is normal. Pericardium: No pericardial effusion. (No Signature Object) Patient: ESTHER RIOS Study Date: 06/28/2018 Page 2 of 2 08:32 AM [id number]
[2018-06-28 11:25] VITALS: BP 120/69
--- NOTE | 2018-06-28 16:36 | CPEKG ---
Test Reason : OPEN Blood Pressure : / mmHG Vent. Rate : 077 BPM Atrial Rate : 076 BPM P-R Int : 180 ms QRS Dur : 155 ms QT Int : 455 ms P-R-T Axes : 038 -73 003 degrees QTc Int : 516 ms Sinus rhythm RBBB and LAFB Confirmed by Anibal Bear ([id number]) on 06/28/2018 4:36:08 PM Referred By: Confirmed By:Anibal Bear
--- NOTE | 2018-06-28 16:37 | CPEKG ---
Test Reason : OPEN Blood Pressure : / mmHG Vent. Rate : 081 BPM Atrial Rate : 081 BPM P-R Int : 173 ms QRS Dur : 149 ms QT Int : 404 ms P-R-T Axes : 036 -70 -23 degrees QTc Int : 469 ms Sinus rhythm RBBB and LAFB Confirmed by Anibal Bear ([id number]) on 06/28/2018 4:37:10 PM Referred By: Confirmed By:Anibal Bear
--- NOTE | 2018-06-29 05:42 | GDS ---
SUPERVISING ROTARY PLANER SET UP OPERATOR: Alli Rios MD ADMISSION DIAGNOSIS: 1. Atrial fibrillation. 2. Atrial flutter DISCHARGE DIAGNOSES: 1. Paroxysmal atrial fibrillation status cryoballoon pulmonary vein isolation 2. Atrial flutter status post ablation of cavotricuspid isthmus. PROCEDURES PERFORMED DURING HOSPITALIZATION: 1. Echocardiogram. 2. Electrocardiogram. 3. Electrophysiology study. 4. Pulmonary vein isolation using cryoballoon ablation. 5. Atrial flutter ablation of the cavotricuspid isthmus. HOSPITAL COURSE: The patient presented 06/27/2018, for atrial flutter ablation and cryoballoon pulmonary vein isolation in the setting of increasing frequency of symptomatic episodes of atrial flutter and atrial fibrillation. He underwent successful pulmonary vein isolation using cryoballoon ablation along with ablation of the cavotricuspid isthmus achieving bidirectional conduction block for atrial flutter. There were no apparent complications during this procedure, and the patient has done very well overnight. CURRENT PHYSICAL EXAMINATION: GENERAL APPEARANCE: No apparent distress. He is alert and oriented x4. Current. CURRENT VITAL SIGNS: Blood pressure 120/69 , heart rate 83 beats per minute, respiratory rate 21, SpO2 92% on room air. HEENT: Head is normocephalic. Lips and tongue are pink and moist, with no signs of cyanosis. Conjunctivae are pink. NECK: Trachea is midline. 2+ carotid pulses bilaterally. No auscultated bruits. No jugular venous distention. RESPIRATORY: Lungs are clear to auscultation. No rhonchi, rales, or wheezes. No accessory muscle use. No intercostal muscle retraction noted. CARDIAC: Regular rate and rhythm, S1, S2. No S3, S4, gallops, rubs, or murmurs noted. ABDOMEN: Soft, nontender. Bowel sounds x4 quadrants. No organomegaly. No palpable masses. SKIN: [place], warm and dry without cyanosis. No clubbing. No peripheral edema. EXTREMITIES: Bilateral pursestring sutures removed without evidence of hematoma, redness, oozing, swelling, or warmth. LABORATORY STUDIES: Drawn from today: WBC 7.32. CMP is normal. Troponin 25.2. PROCEDURES: Electrophysiology study, atrial fibrillation ablation, and atrial flutter ablation. DIAGNOSTIC DATA: Echocardiogram done this morning demonstrates no change compared to preprocedure aside from transseptal puncture visualized. Echo demonstrates mild MR and mild TR. Electrocardiogram this morning demonstrates normal sinus rhythm without ST or T-wave abnormalities. DISCHARGE DISPOSITION: The patient will be discharged home in stable condition. He is under activity restrictions including avoidance of heavy lifting more than 10 pounds for 10 days. He will also avoid submerged bathing during that same timeframe. DISCHARGE MEDICATIONS: Please see discharge med reconciliation sheet. Please note that the patient has resumed his normal dose of Eliquis and diltiazem in the postprocedure period. DISCHARGE INSTRUCTIONS: Post atrial fibrillation and atrial flutter discharge instructions reviewed with the patient and his in detail. We reviewed signs and symptoms of infection, bleeding, gastroesophageal fistula, and thrombus. He will follow up in clinic within the next 3 weeks, and we will continue to follow with serial Holter monitors at 1 month, 3 months and 6 months postprocedure. He will also continue his omeprazole daily for GI prophylaxis. He will contact our clinic with any new or concerning symptoms prior to his clinic visit. /[id number]/MODL MTDD
--- NOTE | 2018-07-04 13:22 | ECHO ---
[email or web address] [address] [address] Main: [phone] Fax: Transesophageal Echocardiography Name: ESTHER RIOS MR#: [id number] Study Date: 06/27/2018 Study Time: 03:37 PM Date of : 1940 Age: 77 year(s) Height: ( ) Weight: ( ) BSA: Gender: Male Examination: KYLE Indication: Pre EP Image Quality: Contrast: Requested by: Alli Nolan Heart Rate: Rhythm: BP: / Procedure Staff Pig Lead Melter Helper: Pierre Lakhani RDCS Reading Physician: Alli Nolan MD Requesting Provider: KYLE Exam Details Conclusions: The ejection fraction is estimated to be 55-60 %. No thrombus in left appendage. Mild mitral valve regurgitation is present. Trivial to mild tricuspid valve regurgitation. Measurements: Chambers Valvular Assessment AV/MV Valvular Assessment TV/PV Normal Normal Normal Name Value Range Name Value Range Name Value Range EF Range: 55-60 % Additional Measurements: Findings: Left Ventricle: The ejection fraction is estimated to be 55-60 %. No regional wall motion abnormality. Left Atrium: The left atrium is normal in size. Left Atrial Appendage: Good color flow doppler in the left atrial appendage. No thrombus in left appendage. Right Atrium: The right atrium is normal in size. Mitral Valve: Patient: ESTHER RIOS Study Date: 06/27/2018 Page 1 of 2 03:37 PM The mitral valve is normal in appearance. Mild mitral valve regurgitation is present. Aortic Valve: The aortic valve is tri-leaflet. There is no significant aortic valve regurgitation. Tricuspid Valve: Trivial to mild tricuspid valve regurgitation. Pulmonic Valve: The pulmonic valve is normal in appearance and function. Aorta: The aorta is normal. Pericardium: No pericardial effusion. l1n (No Signature Object) Patient: ESTHER RIOS Study Date: 06/27/2018 Page 2 of 2 03:37 PM [id number]
== END 2018-06-28 14:42 | disposition home or self-care (01) ==
LOC: FCATH 11:05 → INTOOBSV 17:59 → F2N 17:59 → F2W 06-28 10:48
PROVIDERS: ADMIT Internal Medicine Cardiovascular Disease; ATTEND Internal Medicine Cardiovascular Disease
DX: I48.0 Paroxysmal atrial fibrillation (principal); I48.92 Unspecified atrial flutter; I45.10 Unspecified right bundle-branch block
CPT/HCPCS: 93005; 93306; 93613; 93655; 93656; 93662; C1731; C1732; C1733; C1759; C1766; C1893; J1644; J2370; J2704; J2720; J3010; Q9967

== ENCOUNTER → 2018-07-13 | Outpatient (CLI) | payer OTHER, MEDICARE | LOC: BHFA 09:30 | PROVIDERS: ATTEND Internal Medicine Cardiovascular Disease | DX: I48.91 Unspecified atrial fibrillation (principal) ==

== ENCOUNTER → 2018-07-19 | Outpatient (CLI) | payer OTHER, MEDICARE | LOC: BMCIMAGING 08:45 | PROVIDERS: ATTEND Internal Medicine | DX: N28.1 Cyst of kidney, acquired (principal) ==

== ENCOUNTER → 2018-07-31 | Outpatient (CLI) | payer OTHER, MEDICARE | LOC: BHFA 11:30 | PROVIDERS: ATTEND Internal Medicine Cardiovascular Disease | DX: I48.91 Unspecified atrial fibrillation (principal) ==